=== PATIENT | female | born 1945 | race Caucasian/White ===

== ENCOUNTER 2020-10-10 16:50 | Inpatient (IN) | payer MEDICARE ==
[2020-10-10] MEDS ORDERED: fentaNYL 50 MCG/ML SDV IVPUSH ONE (17:28)
--- NOTE | 2020-10-10 17:48 | EDM.PDOC ---
ED HPI GENERAL MEDICAL PROBLEM - General Chief Complaint: Back Pain or Injury Stated Complaint: right low back pain. Time Seen by Provider: 10/10/20 17:20 Source of Information: Reports: Patient, EMS, EMS Notes Reviewed History Limitations: Reports: No Limitations - History of Present Illness INITIAL COMMENTS - FREE TEXT/NARRATIVE: Patient presents via EMS for back pain. She states that she had a flare of low back pain in the middle of her back a few weeks ago and by the time she saw her physician it was improving. She was prescribed some tizanidine and kept it on hand in case she needed it. She states that the pain was in the middle of the lumbar area without any radiculopathy. No loss of bowel or bladder and no perineal nuumbness. two days ago she bent over to reach in to a laundry machine and had sudden pain in the right buttock area without radiculopathy. States she took an aleve, a tizanidine and went to bed. THis morning she awoke with significant pain with any movement in bed. Pain is better laying flat on her back. She attempted multiple times today to get out of bed, unsuccessful due to chronic deconditioning in the upper body to pull herself up. She urinated in the bed several times due to inability to get up and her could not get her up either. She denies inability to hold her urine, and no loss of control, just significant pain and inability to get out of bed. No stool loss. no perineal numbness. Last took a tizanidine at 2 am. took some tylenol and aleve today. No back surgery or injury. NO fevers or chills. NO IVDU. 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 Onset Date: 10/09/20 Duration: Constant Location: Reports: Back Severity: Moderate Improves with: Reports: Other (laying flat on her back) Worsens with: Reports: Movement Associated Symptoms: Reports: No Other Symptoms Treatments BRA[employer]ED [employer]: Reports: Acetaminophen, NSAIDS, Other Medication(s) (tizanidine at 2 am) Right Buttock Pain Score (Numeric/FACES): 1 - Related Data Allergies Allergy/AdvReac Type Severity Reaction Status Date / Time No Known Allergies Allergy Verified 10/10/20 17:25 Home Meds: Home Meds tiZANidine [Zanaflex] 2 mg PO DAILY PRN 10/10/20 [History] Past Medical History Neurological History: Reports: Migraines Hematologic History: Reports: Other (See Below) (smoldering small lyphocytic lymphoma) - Past Surgical History HEENT Surgical History: Reports: Other (See Below) (blepharoplasty) Female Surgical History: Reports: Tubal Ligation Social & Family History - Tobacco Use Tobacco Use Status *Q: Never Tobacco User - Alcohol Use Alcohol Use History: No Alcohol Use in Last Twelve Months: No - Recreational Drug Use Recreational Drug Use: No Drug Use in Last 12 Months: No ED ROS GENERAL - Review of Systems Review Of Systems: See Below Constitutional: Reports: No Symptoms. Denies: Fever, Chills, Malaise, Weakness HEENT: Reports: No Symptoms. Denies: Contact Lenses, Throat Pain, Throat Swelling Respiratory: Reports: No Symptoms. Denies: Shortness of Breath, Cough, Sputum Cardiovascular: Reports: No Symptoms. Denies: Chest Pain, Claudication, Dyspnea on Exertion Endocrine: Reports: No Symptoms GI/Abdominal: Reports: No Symptoms. Denies: Abdominal Pain, Anorexia, Black Stool, Bloody Stool, Nausea, Stool Incontinence, Vomiting : Reports: No Symptoms. Denies: Discharge, Dysuria, Frequency Musculoskeletal: Reports: Back Pain Skin: Reports: No Symptoms Neurological: Reports: No Symptoms. Denies: Confusion, Dizziness ED EXAM,LOWER BACK PAIN/INJURY - Physical Exam Exam: See Below Exam Limited By: No Limitations General Appearance: WD/WN, No Apparent Distress Eye Exam: Bilateral Eye: EOMI, Normal Inspection, PERRL Nose: Normal Inspection, Normal Mucosa, No Blood Throat/Mouth: Normal Inspection, Normal Lips, Normal Teeth Head: Atraumatic, Normocephalic Neck: Normal Inspection, Supple, Non-Tender, Full Range of Motion Respiratory/Chest: No Respiratory Distress, Lungs Clear, Normal Breath Sounds, No Accessory Muscle Use, Chest Non-Tender Cardiovascular: Normal Peripheral Pulses, Regular Rate, Rhythm, No Murmur GI/Abdominal: Normal Bowel Sounds, Soft, Non-Tender, No Abnormal Bruit Back Exam: Other (difficulty rolling over in bed. pain to palpation at the SI joint on the right. NO lumbar verteberal or midline tenderness. NO lesions or rashes. Able to squeeze butt cheecks together. No other pain to palpation ) Extremities: Normal Inspection, Normal Range of Motion, Non-Tender, No Pedal Edema, Normal Capillary Refill (2/4 strength symmetric bilaterally in the lower extremities to knee extension, knee flexion, hip flexion, foot dorsi and plantar flexion. Normal sensation to light touch bilaterally in the lower extremities. dorsalis pedis and posterior tibialis pulses intact distally bilaterally) Neurological: Alert, Normal Mood/Affect, Normal Dorsiflexion, CN II-XII Intact, Normal Plantar Flexion, No Motor/Sensory Deficits, Oriented x 3, Difficulty Walking. No: Tremor, Saddle Anesthesia Psychiatric: Normal Affect, Normal Mood Skin Exam: Warm, Dry Course - Vital Signs Last Recorded V/S: Last Vital Signs Temp 36.6 C 10/10/20 16:50 Pulse 84 10/10/20 16:50 Resp 16 10/10/20 16:50 BP 133/58 L 10/10/20 16:50 Pulse Ox 97 10/10/20 16:50 - Orders/Labs/Meds Orders: Active Orders 24 hr Category Date Time Status Admission Status [Patient Status] [ADT] Routine ADT 10/10/20 19:06 Ordered Acetaminophen/HYDROcodone [[place] 325-5 MG] Med 10/10/20 19:08 Ordered 1 tab PO Q4H PRN Lactulose [Cephulac] Med 10/10/20 20:00 Ordered 20 gm PO BID Medication Orders Hydrocodone Bitart/Acetaminophen (Acetaminophen/Hydrocodone 325-5 Mg Tab) 1 tab PO Q4H PRN PRN Reason: Pain (moderate 4-6) Lactulose (Lactulose Soln 10 Gm/15 Ml 30 Ml Ud Cup) 20 gm PO BID YOMAIRA Labs: Laboratory Tests 10/10/20 10/10/20 10/10/20 Range/Units 17:43 17:43 17:43 WBC 11.0 H (4.0-10.0) x10^3/uL RBC 3.81 L (4.00-5.50) x10^6/uL Hgb 11.8 L (12.0-16.0) g/dL Hct 33.9 (33.0-47.0) % MCV 89.0 (78.0-93.0) fL MCH 31.0 (26.0-32.0) pg MCHC 34.8 (32.0-36.0) g/dL RDW Coeff of Ileana 12.1 (10.0-15.0) % Plt Count 297 (130-400) x10^3/uL Neut % (Auto) 72.0 (50.0-80.0) % Lymph % (Auto) 19.8 L (25.0-50.0) % [place] % (Auto) 7.5 (2.0-11.0) % Eos % (Auto) 0.3 (0.0-4.0) % Baso % (Auto) 0.4 (0.2-1.2) % ESR 12 (0-20) mm/hr Sodium 142 (136-145) mmol/L Potassium 4.0 (3.5-5.1) mmol/L Chloride 108 H (98-107) mmol/L Carbon Dioxide 24 (21-32) mmol/L Anion Gap 14.0 (5-15) mmol/L BUN 15 (7-18) mg/dL Creatinine 0.7 (0.55-1.02) mg/dL Est Cr Clr Drug Dosing TNP Estimated GFR (MDRD) > 60 Glucose 110 H (70-99) mg/dL Lactic Acid 0.6 (0.4-2.0) mmol/L Calcium 9.3 (8.5-10.1) mg/dL Corrected Calcium 9.4 (8.5-10.1) mg/dL Total Bilirubin 0.7 (0.2-1.0) mg/dL AST 18 (15-37) U/L ALT 10 L (14-59) U/L Alkaline Phosphatase 91 (46-116) U/L C-Reactive Protein < 0.2 (<=0.9) mg/dL Total Protein 6.6 (6.4-8.2) g/dL Albumin 3.9 (3.4-5.0) g/dL Globulin 2.7 Albumin/Globulin Ratio 1.44 Urine Color (YELLOW) Urine Appearance (CLEAR) Urine pH (5.0-8.0) Ur Specific Chapman Urine Protein (NEGATIVE) mg/dL Urine Glucose (UA) (NEGATIVE) mg/dL Urine Ketones (NEGATIVE) mg/dL Urine Occult Blood (NEGATIVE) Urine Nitrite (NEGATIVE) Urine Bilirubin (NEGATIVE) Urine Urobilinogen (0.2) EU/dL Ur Leukocyte Esterase (NEGATIVE) SARS CoV-2 RNA Rapid JOY (NEGATIVE) 10/10/20 10/10/20 Range/Units 17:45 18:09 WBC (4.0-10.0) x10^3/uL RBC (4.00-5.50) x10^6/uL Hgb (12.0-16.0) g/dL Hct (33.0-47.0) % MCV (78.0-93.0) fL MCH (26.0-32.0) pg MCHC (32.0-36.0) g/dL RDW Coeff of Ileana (10.0-15.0) % Plt Count (130-400) x10^3/uL Neut % (Auto) (50.0-80.0) % Lymph % (Auto) (25.0-50.0) % [place] % (Auto) (2.0-11.0) % Eos % (Auto) (0.0-4.0) % Baso % (Auto) (0.2-1.2) % ESR (0-20) mm/hr Sodium (136-145) mmol/L Potassium (3.5-5.1) mmol/L Chloride (98-107) mmol/L Carbon Dioxide (21-32) mmol/L Anion Gap (5-15) mmol/L BUN (7-18) mg/dL Creatinine (0.55-1.02) mg/dL Est Cr Clr Drug Dosing Estimated GFR (MDRD) Glucose (70-99) mg/dL Lactic Acid (0.4-2.0) mmol/L Calcium (8.5-10.1) mg/dL Corrected Calcium (8.5-10.1) mg/dL Total Bilirubin (0.2-1.0) mg/dL AST (15-37) U/L ALT (14-59) U/L Alkaline Phosphatase (46-116) U/L C-Reactive Protein (<=0.9) mg/dL Total Protein (6.4-8.2) g/dL Albumin (3.4-5.0) g/dL Globulin Albumin/Globulin Ratio Urine Color Yellow (YELLOW) Urine Appearance Clear (CLEAR) Urine pH 7.0 (5.0-8.0) Ur Specific [place] 1.025 Urine Protein Negative (NEGATIVE) mg/dL Urine Glucose (UA) Negative (NEGATIVE) mg/dL Urine Ketones 15 H (NEGATIVE) mg/dL Urine Occult Blood Negative (NEGATIVE) Urine Nitrite Negative (NEGATIVE) Urine Bilirubin Negative (NEGATIVE) Urine Urobilinogen 0.2 (0.2) EU/dL Ur Leukocyte Esterase Negative (NEGATIVE) SARS CoV-2 RNA Rapid JOY Negative (NEGATIVE) Meds: Medications Generic Name Dose Route Start Last Admin Trade Name Freq PRN Reason Stop Dose Admin Hydrocodone Bitart/Acetaminophen 1 tab 10/10/20 19:08 Acetaminophen/Hydrocodone 325-5 Mg Tab PO Q4H PRN Pain (moderate 4-6) Lactulose 20 gm 10/10/20 20:00 Lactulose Soln 10 Gm/15 Ml 30 Ml Ud Cup PO BID YOMAIRA Discontinued Medications Generic Name Dose Route Start Last Admin Trade Name Freq PRN Reason Stop Dose Admin Diazepam 2.5 mg 10/10/20 17:28 10/10/20 17:42 Diazepam 10 Mg/2 Ml Syringe IVPUSH 10/10/20 17:29 2.5 mg STAT ONE Administration Fentanyl 25 mcg 10/10/20 17:28 10/10/20 17:35 Fentanyl 50 Mcg/Ml Sdv IVPUSH 10/10/20 17:29 25 mcg ONETIME ONE Administration Glycerin 1 supp 10/10/20 19:08 Glycerin Adult 2 Gm Supp RECTAL 10/10/20 19:09 ONETIME ONE - Radiology Interpretation Free Text/Narrative:: CT of the pelvis without contrast no fracture, dislocation or acute osseous abnormality. DJD of the femoral acetabular joints bilaterally. partially visualized retroperitoneal and mesenteric adenopathy, not significantly changed compared to recent study. moderate retained stool within the rectum. NO acute fracture CT of the lumbar spine non contrast. compression deformity of the L1 vertebral body involving the inferior endplate not seen on study August 31 2020. 20% loss of body height. No significant retropulsion. interpreted by radiologist. - Re-Assessments/Exams Free Text/Narrative Re-Assessment/Exam: 10/10/20 18:05 Patient was given 2.5 mg of valium IV by EMS, this did drop her blood pressure from 130 systolic to 100. IV fluids were given. patient tolerated exam minimally. No neurological defect, some global weakness but equal and symmetric. Will give valium 2.5 mg IVP, fenatanyl [address] non contrast pelvis and lumbar spine due to inability to get out of bed. Check labs and cath urine specimen 10/10/20 19:14 offered admission for intractable pain. wants to do this. understands the need for MRI to document the acuity of the L1 compression fracture. Although the c ompression fracture was not present on the previous CT in August, insurance does require this. Needs referral to vertebroplasty after this. PCP can organize this outpatient with MRI next week. given hydrocodone 5/325 po, glycerin suppository as there is stool in the rectal vault and lactulose started to prevent constipation. Departure - Departure Time of Disposition: 19:13 Disposition: Refer to Observation Clinical Impression: Compression fracture of L1 lumbar vertebra, Abdominal lymphadenopathy - Discharge Information *PRESCRIPTION DRUG MONITORING PROGRAM REVIEWED*: Not Applicable *COPY OF PRESCRIPTION DRUG MONITORING REPORT IN PATIENT RADHIKA: Not Applicable Referrals: Arlet Koehler DO [Primary Care Provider] - Forms: ED Department Discharge Additional Instructions: please use the ER visit as the admission H & P Sepsis Event Note (ED) - Focused Exam Vital Signs: Vital Signs Temp Pulse Resp BP Pulse Ox 10/10/20 16:50 36.6 C 84 16 133/58 L 97 - My Orders Last 24 Hours: My Active Orders 10/10/20 19:06 Admission Status [Patient Status] [ADT] Routine 10/10/20 19:08 Acetaminophen/HYDROcodone [[place] 325-5 MG] 1 tab PO Q4H PRN 10/10/20 20:00 Lactulose [Cephulac] 20 gm PO BID - Assessment/Plan Last 24 Hours: My Active Orders 10/10/20 19:06 Admission Status [Patient Status] [ADT] Routine 10/10/20 19:08 Acetaminophen/HYDROcodone [[place] 325-5 MG] 1 tab PO Q4H PRN 10/10/20 20:00 Lactulose [Cephulac] 20 gm PO BID
[2020-10-10 18:15] LABS: CHLORIDE,CL 108 mmol/L (98-107); SODIUM,NA 142 mmol/L (136-145)
--- NOTE | 2020-10-10 18:44 | CT ---
[id number] CT/CT Pelvis WO IV EXAM: CT PELVIS WITHOUT CONTRAST. INDICATION: RIGHT LOWER BACK PAIN, UNABLE TO GET OUT OF BED. COMPARISON: None. DISCUSSION: No fracture, dislocation or other acute osseous abnormality. Mild degenerative changes of the femoral acetabular joints bilaterally. Again identified is a partially visualized retroperitoneal and mesenteric adenopathy. Overall this is not significantly changed when compared to recent study. Moderate amount of retained stool within the rectum. Impaction is not excluded. IMPRESSION: 1. No acute fracture. Jluis Chin DO 10/10/20 [id number] Thank you for allowing us to participate in the care of your patient.
--- NOTE | 2020-10-10 18:48 | CT ---
[id number] CT/CT Lumbar Spine WO IV EXAM: CT L-SPINE WITHOUT CONTRAST. INDICATION: RIGHT LOWER BACK PAIN, UNABLE TO GET OUT OF BED. COMPARISON: CT abdomen pelvis with contrast September 14, 2020. DISCUSSION: Compression deformity of the L1 vertebral body involving the inferior endplate was not seen on study from September 14, 2020. There is approximately 20% loss of body height. No significant retropulsion. No other compression deformities are identified. Mild multilevel degenerative changes of the lumbar spine including loss of disc space height, endplate osteophytosis and facet arthropathy. Findings are most pronounced at L4-L5. Again identified is extensive retroperitoneal and mesenteric adenopathy. Overall this is not significantly changed when compared to recent study. Moderate amount of retained stool within the rectum. Impaction is not excluded. IMPRESSION: 1. New compression deformity of L1 vertebral body with approximately 20% loss of body height. No significant retropulsion. Jluis Chin DO 10/10/20 [id number] Thank you for allowing us to participate in the care of your patient.
[2020-10-10] MEDS ORDERED: Glycerin Adult 2 GM Supp RECTAL ONE (19:08)
[2020-10-10] MEDS ORDERED: Ondansetron 4 MG Tab.DIS PO PRN (19:22)
[2020-10-10] MEDS ORDERED: Docusate Sodium 100 MG Cap PO PRN (19:22)
[2020-10-10] MEDS ORDERED: Ibuprofen 200 MG Tab PO PRN (19:22)
[2020-10-10] MEDS ORDERED: Acetaminophen 325 MG Tab PO PRN (19:22)
[2020-10-10] MEDS ORDERED: Flumazenil 0.1 MG/ML 5 ML MDV IVPUSH PRN (19:25)
[2020-10-10] MEDS ORDERED: Lidocaine 4% 1 each Patch TOP PRN (19:25)
[2020-10-10] MEDS: Acetaminophen/HYDROcodone 325-5 MG Tab PO PRN (19:40)
[2020-10-10] MEDS: Lactulose Soln 10 GM/15 ML 30 ML UD Cup PO SCH (21:30)
[2020-10-11] MEDS: Acetaminophen/HYDROcodone 325-5 MG Tab PO PRN ×4 (02:19→17:04)
[2020-10-11] MEDS: Cyclobenzaprine 10 MG Tab PO PRN ×2 (08:23→17:05)
[2020-10-11] MEDS: Lactulose Soln 10 GM/15 ML 30 ML UD Cup PO SCH ×2 (08:26→20:00)
[2020-10-11] MEDS: Enoxaparin 40 MG/0.4 ML Syringe SUBCUT SCH (11:28)
--- NOTE | 2020-10-11 18:33 | PCM.PN ---
- General Info Date of Service: 10/11/20 Admission Dx/Problem (Free Text): intractable back pain, L1 compression fracture Subjective Update: Patient was admitted last night for intractable back pain. She has a new L1 compression fracture and has been receiving pain medication, physical therapy has started intervention. initial attempt to get up resulted in vasovagal and patient laid flat on her back most of the day. This evening she did get up, walked some laps, sat in a chair and had a bowel movement. Improving Functional Status: Reports: Pain Controlled, Ambulating - Review of Systems General: Reports: No Symptoms HEENT: Reports: No Symptoms Pulmonary: Reports: No Symptoms Cardiovascular: Reports: No Symptoms Gastrointestinal: Reports: No Symptoms Genitourinary: Reports: No Symptoms Musculoskeletal: Reports: Back Pain Neurological: Reports: No Symptoms Psychiatric: Reports: No Symptoms - Patient Data Vitals - Most Recent: Last Vital Signs Temp 36.8 C 10/11/20 14:00 Pulse 79 10/11/20 14:00 Resp 16 10/11/20 14:00 BP 101/53 L 10/11/20 14:00 Pulse Ox 95 10/11/20 14:00 Weight - Most Recent: 71.9 kg I&O - Last 24 Hours: Intake & Output 10/11/20 10/11/20 10/11/20 06:59 14:59 22:59 Intake Total 300 Output Total 300 Balance -300 300 Lab Results Last 24 Hours: Laboratory Results - last 24 hr 10/10/20 Range/Units 17:43 ESR 12 (0-20) mm/hr Med Orders - Current: Current Medications Acetaminophen (Acetaminophen 325 Mg Tab) 650 mg PO Q4H PRN PRN Reason: Pain (Mild 1-3)/fever Hydrocodone Bitart/Acetaminophen (Acetaminophen/Hydrocodone 325-5 Mg Tab) 1 tab PO Q4H PRN PRN Reason: Pain (moderate 4-6) Last Admin: 10/11/20 17:04 Dose: 1 tab Documented by: Cyclobenzaprine HCl (Cyclobenzaprine 10 Mg Tab) 10 mg PO Q8H PRN PRN Reason: Spasms Last Admin: 10/11/20 17:05 Dose: 10 mg Documented by: Diazepam (Diazepam 10 Mg/2 Ml Syringe) 2.5 mg IVPUSH Q4HR PRN PRN Reason: Spasms Docusate Sodium (Docusate Sodium 100 Mg Cap) 100 mg PO BID PRN PRN Reason: Constipation Enoxaparin Sodium (Enoxaparin 40 Mg/0.4 Ml Syringe) 40 mg SUBCUT Q24H [facility] Last Admin: 10/11/20 11:28 Dose: 40 mg Documented by: Fentanyl (Fentanyl 50 Mcg/Ml Sdv) 25 mcg IVPUSH Q2HR PRN PRN Reason: Pain (severe 7-10) Flumazenil (Flumazenil 0.1 Mg/Ml 5 Ml Mdv) 0.2 mg IVPUSH ASDIRECTED PRN PRN Reason: Respiratory Depression Ibuprofen (Ibuprofen 200 Mg Tab) 600 mg PO Q6H PRN PRN Reason: Pain (mild 1-3) Lactulose (Lactulose Soln 10 Gm/15 Ml 30 Ml Ud Cup) 20 gm PO BID [facility] Last Admin: 10/11/20 08:26 Dose: 20 gm Documented by: Lidocaine (Lidocaine 4% 1 Each Patch) 1 each TOP DAILY PRN PRN Reason: Pain Last Admin: 10/11/20 11:28 Dose: 1 each Documented by: Miscellaneous Information (Remove Lidocaine Patch) 1 ea TRDERM BEDTIME [facility] Ondansetron HCl (Ondansetron 4 Mg Tab.Dis) 4 mg PO Q4H PRN PRN Reason: nausea, able to take PO Last Admin: 10/11/20 18:08 Dose: 4 mg Documented by: Ondansetron HCl (Ondansetron 4 Mg/2 Ml Sdv) 4 mg IV Q4H PRN PRN Reason: Nausea/Vomiting Discontinued Medications Diazepam (Diazepam 10 Mg/2 Ml Syringe) 2.5 mg IVPUSH STAT ONE Stop: 10/10/20 17:29 Last Admin: 10/10/20 17:42 Dose: 2.5 mg Documented by: Fentanyl (Fentanyl 50 Mcg/Ml Sdv) 25 mcg IVPUSH ONETIME ONE Stop: 10/10/20 17:29 Last Admin: 10/10/20 17:35 Dose: 25 mcg Documented by: Glycerin (Glycerin Adult 2 Gm Supp) 1 supp RECTAL ONETIME ONE Stop: 10/10/20 19:09 Last Admin: 10/10/20 19:42 Dose: 1 supp Documented by: - Exam General: Alert HEENT: Pupils Equal Neck: Supple Lungs: Clear to Auscultation Cardiovascular: Regular Rate, Regular Rhythm GI/Abdominal Exam: Normal Bowel Sounds, Soft Extremities: Normal Inspection, Normal Range of Motion, Non-Tender, Other (ambulating well) Neurological: No New Focal Deficit - Patient Data Lab Results Last 24 hrs: Laboratory Results - last 24 hr 10/10/20 Range/Units 17:43 ESR 12 (0-20) mm/hr Result Diagrams: 10/10/20 17:43 10/10/20 17:43 Sepsis Event Note - Focused Exam Vital Signs: Vital Signs Temp Pulse Resp BP Pulse Ox 10/11/20 14:00 36.8 C 79 16 101/53 L 95 10/11/20 10:00 36.8 C 78 20 150/57 H 98 - Problem List & Annotations (1) Compression fracture of L1 lumbar vertebra SNOMED Code(s): 669812105, [id number], [id number] Code(s): S32.010A - WEDGE COMPRESSION FRACTURE OF FIRST LUMBAR VERTEBRA, INIT Status: Acute Current Visit: Yes Annotation/Comment:: patient has new L1 compression fracture, getting scheduled pain medication, managed to get up for physical therapy tonight, improving. Needs further therapy to make it home - Problem List Review Problem List Initiated/Reviewed/Updated: Yes - My Orders Last 24 Hours: My Active Orders 10/10/20 19:06 Admission Status [Patient Status] [ADT] Routine 10/10/20 19:08 Acetaminophen/HYDROcodone [[place] 325-5 MG] 1 tab PO Q4H PRN 10/10/20 19:22 May Shower [RC] .PRN Oxygen Therapy [RC] .PRN Up With Assistance [RC] 08,20 Vital Signs [RC] 06,10,14,18,22,02 Acetaminophen [TylenoL] 650 mg PO Q4H PRN Docusate Sodium [Colace] 100 mg PO BID PRN Ibuprofen [Motrin] 600 mg PO Q6H PRN Ondansetron [Zofran ODT] 4 mg PO Q4H PRN Ondansetron [Zofran] 4 mg IV Q4H PRN Resuscitation Status Routine 10/10/20 19:25 Consult to Physical Therapy [PT Evaluation and Treatment] [CONS] Routine Cyclobenzaprine [Flexeril] 10 mg PO Q8H PRN Lidocaine 4% [Aspercreme 4%] 1 each TOP DAILY PRN diazePAM [Valium] 2.5 mg IVPUSH Q4HR PRN flumazeniL [Romazicon] 0.2 mg IVPUSH ASDIRECTED PRN 10/10/20 19:31 fentaNYL 25 mcg IVPUSH Q2HR PRN 10/10/20 20:00 Lactulose [Cephulac] 20 gm PO BID 10/11/20 Breakfast Regular Diet [DIET] 10/11/20 12:00 Enoxaparin [Lovenox] 40 mg SUBCUT Q24H 10/11/20 20:00 Remove Patch 1 ea TRDERM BEDTIME - Assessment Assessment:: L1 compression fracture, intractable pain, improving with mediations and therapy - Plan Plan:: Patient needs to continue to progress with therapy, be more independent. Has called PCP to set up MRI and refer for vertebroplasty in [place]. Is doing better tonight and more optimistic. Will continue cares in hopes of 20:00 discharge on 10/12 or transfer to acute care.
[2020-10-12] MEDS: Cyclobenzaprine 10 MG Tab PO PRN ×2 (01:06→22:37)
[2020-10-12] MEDS: Acetaminophen/HYDROcodone 325-5 MG Tab PO PRN ×2 (08:13→19:58)
[2020-10-12] MEDS: Lactulose Soln 10 GM/15 ML 30 ML UD Cup PO SCH ×2 (08:13→19:57)
[2020-10-12] MEDS: Calcitonin (Salmon) Nasal Spray 3.7 ML Bottle NAS SCH (10:58)
[2020-10-12] MEDS: fentaNYL 50 MCG/ML SDV IVPUSH PRN ×3 (11:12→17:25)
[2020-10-12] MEDS: Enoxaparin 40 MG/0.4 ML Syringe SUBCUT SCH (11:13)
[2020-10-12] MEDS: Ondansetron 4 MG/2 ML SDV IV PRN (14:16)
--- NOTE | 2020-10-12 14:18 | PCM.PN ---
- General Info Date of Service: 10/12/20 Admission Dx/Problem (Free Text): intractable back pain, L1 compression fracture Subjective Update: Patient was feeling good this am, had been up ambulating last evening with staff as well as earlier today. Does admit that position changes are the hardest for her. Was only using tylenol through the night for pain. States if lays still in the bed, has no pain. Has been eating well. No nausea or vomiting with meals. Called to the room to assess patient for discharge home as she had been doing well. Attempting to get out of the bed and repositioning self. Very slow and purposeful. Started having spasms and became nauseated. Unsure how she would manage at home with only there to assist her. Functional Status: Reports: Tolerating Diet, Ambulating. Denies: Pain Controlled - Review of Systems General: Reports: Weakness HEENT: Reports: No Symptoms Pulmonary: Denies: Shortness of Breath, Cough Cardiovascular: Denies: Chest Pain, Edema Gastrointestinal: Reports: Nausea. Denies: Abdominal Pain, Vomiting Genitourinary: Reports: No Symptoms Musculoskeletal: Reports: Back Pain Skin: Reports: Pallor Neurological: Reports: Weakness - Patient Data Vitals - Most Recent: Last Vital Signs Temp 97.9 F 10/12/20 10:00 Pulse 73 10/12/20 10:00 Resp 18 10/12/20 10:00 BP 103/51 L 10/12/20 10:00 Pulse Ox 94 L 10/12/20 06:00 Weight - Most Recent: 158 lb 8.198 oz I&O - Last 24 Hours: Intake & Output 10/11/20 10/12/20 10/12/20 22:59 06:59 14:59 Intake Total 640 100 Balance 640 100 Med Orders - Current: Current Medications Acetaminophen (Acetaminophen 325 Mg Tab) 650 mg PO Q4H PRN PRN Reason: Pain (Mild 1-3)/fever Last Admin: 10/12/20 01:05 Dose: 650 mg Documented by: Hydrocodone Bitart/Acetaminophen (Acetaminophen/Hydrocodone 325-5 Mg Tab) 1 tab PO Q4H PRN PRN Reason: Pain (moderate 4-6) Last Admin: 10/12/20 08:13 Dose: 1 tab Documented by: Calcitonin [place] (Calcitonin ([place]) Nasal [place] 3.7 Ml Bottle) 0 ml XUAN DAILY YOMAIRA Last Admin: 10/12/20 10:58 Dose: Not Given Documented by: Cyclobenzaprine HCl (Cyclobenzaprine 10 Mg Tab) 10 mg PO Q8H PRN PRN Reason: Spasms Last Admin: 10/12/20 01:06 Dose: 10 mg Documented by: Diazepam (Diazepam 10 Mg/2 Ml Syringe) 2.5 mg IVPUSH Q4HR PRN PRN Reason: Spasms Docusate Sodium (Docusate Sodium 100 Mg Cap) 100 mg PO BID PRN PRN Reason: Constipation Enoxaparin Sodium (Enoxaparin 40 Mg/0.4 Ml Syringe) 40 mg SUBCUT Q24H [facility] Last Admin: 10/12/20 11:13 Dose: 40 mg Documented by: Fentanyl (Fentanyl 50 Mcg/Ml Sdv) 25 mcg IVPUSH Q2HR PRN PRN Reason: Pain (severe 7-10) Last Admin: 10/12/20 11:12 Dose: 25 mcg Documented by: Flumazenil (Flumazenil 0.1 Mg/Ml 5 Ml Mdv) 0.2 mg IVPUSH ASDIRECTED PRN PRN Reason: Respiratory Depression Ibuprofen (Ibuprofen 200 Mg Tab) 600 mg PO Q6H PRN PRN Reason: Pain (mild 1-3) Lactulose (Lactulose Soln 10 Gm/15 Ml 30 Ml Ud Cup) 20 gm PO BID [facility] Last Admin: 10/12/20 08:13 Dose: 20 gm Documented by: Lidocaine (Lidocaine 4% 1 Each Patch) 1 each TOP DAILY PRN PRN Reason: Pain Last Admin: 10/11/20 11:28 Dose: 1 each Documented by: Miscellaneous Information (Remove Lidocaine Patch) 1 ea TRDERM BEDTIME [facility] Last Admin: 10/11/20 20:01 Dose: 1 ea Documented by: Ondansetron HCl (Ondansetron 4 Mg Tab.Dis) 4 mg PO Q4H PRN PRN Reason: nausea, able to take PO Last Admin: 10/11/20 18:08 Dose: 4 mg Documented by: Ondansetron HCl (Ondansetron 4 Mg/2 Ml Sdv) 4 mg IV Q4H PRN PRN Reason: Nausea/Vomiting Discontinued Medications Diazepam (Diazepam 10 Mg/2 Ml Syringe) 2.5 mg IVPUSH STAT ONE Stop: 10/10/20 17:29 Last Admin: 10/10/20 17:42 Dose: 2.5 mg Documented by: Fentanyl (Fentanyl 50 Mcg/Ml Sdv) 25 mcg IVPUSH ONETIME ONE Stop: 10/10/20 17:29 Last Admin: 10/10/20 17:35 Dose: 25 mcg Documented by: Glycerin (Glycerin Adult 2 Gm Supp) 1 supp RECTAL ONETIME ONE Stop: 10/10/20 19:09 Last Admin: 10/10/20 19:42 Dose: 1 supp Documented by: - Exam General: Alert, Oriented HEENT: Mucous Membr. Moist/[place] Neck: Supple Lungs: Clear to Auscultation, Normal Respiratory Effort Cardiovascular: Regular Rate, Regular Rhythm GI/Abdominal Exam: Normal Bowel Sounds, Soft, Non-Tender Back Exam: Decreased Range of Motion, Muscle Spasm, Vertebral Tenderness Extremities: Normal Inspection, No Pedal Edema Skin: Warm, Dry Neurological: No New Focal Deficit - Patient Data Result Diagrams: 10/10/20 17:43 10/10/20 17:43 Sepsis Event Note - Evaluation Sepsis Screening Result: No Definite Risk - Focused Exam Vital Signs: Vital Signs Temp Pulse Pulse Resp BP BP Pulse Ox 10/12/20 10:00 97.9 F 73 73 18 103/51 L 10/12/20 06:00 97.2 F 68 16 107/53 L 94 L - Problem List & Annotations (1) Compression fracture of L1 lumbar vertebra SNOMED Code(s): 694023906, 287827893, [id number] Code(s): S32.010A - WEDGE COMPRESSION FRACTURE OF FIRST LUMBAR VERTEBRA, INIT Status: Acute Priority: High Current Visit: Yes Qualifiers: Encounter type: initial encounter Qualified Code(s): S32.010A - Wedge compression fracture of first lumbar vertebra, initial encounter for closed fracture Annotation/Comment:: patient has new L1 compression fracture, getting scheduled pain medication, managed to get up for physical therapy tonight, improving. Needs further therapy to make it home - Problem List Review Problem List Initiated/Reviewed/Updated: Yes - My Orders Last 24 Hours: My Active Orders 10/12/20 09:15 Calcitonin ([place]) [Miacalcin Nasal [place]] See Dose Instructions XUAN DAILY 10/12/20 14:10 Patient Status [ADT] Routine - Assessment Assessment:: L1 compression fracture, intractable pain, improving with mediations and therapy - Plan Plan:: Patient needs to continue to progress with therapy, be more independent. Has called PCP to set up MRI and refer for vertebroplasty in [place]. Is doing better tonight and more optimistic. Will continue cares in hopes of 20:00 discharge on 10/12 or transfer to acute care. 10-12-2020 Patient has had intermittent pain, mostly increases with any position changes. Was attempting to get up to commode, had sudden onset of pain and spasms, became nauseated. Unsure how to care for self at home. Movement is very slow. is tender to lumbar spine. Contacted Dr. Koehler in regards to acute admission for pain control as struggling with movement. She agrees to transferring patient to acute admission.
[2020-10-12 16:16] LABS: ANION GAP 12.7 mmol/L (5-15); CHLORIDE,CL 105 mmol/L (98-107); SODIUM,NA 140 mmol/L (136-145)
[2020-10-12] MEDS: Ketorolac 15 MG/ML SDV IVPUSH PRN (17:23)
[2020-10-12] MEDS: Ibuprofen 200 MG Tab PO SCH (19:58)
--- NOTE | 2020-10-12 20:48 | HP ---
CHIEF COMPLAINT: Back pain. HISTORY OF PRESENT ILLNESS: This 75-year-old female admitted to observation on 10/10 with back pain that she could not even get out of bed at home and was found to have an L1 compression fracture, 20% loss of height. She has no history of previous compression fractures or previous back problems or surgery, but the patient had had a CT back in August for her lymphoma. She did not remember any specific injury but had some painful back spasms, but by the time she saw me on 09/29, they were better. She had tried going to the chiropractor, but it made it worse. She had tried some muscle relaxant tizanidine. She states at home she just like moved her arm to get some clothes out of the laundry and then it was sore and then she just was in bed and could not get up to the point where she lost control of her urine, but has not had further problems with bowel or bladder incontinence and has had a bowel movement here. The patient was just getting oral agents for pain control. She was actually getting up yesterday working with therapy. She was doing well enough. She was hopeful to go home today, but this afternoon as she was getting up to get ready, she just had severe pain from like 0 to 9. She ended up getting fentanyl. She has had 2 IV doses of 25, and she just still is a 5/10, even lying still in bed. She does not even want to be touched. She has to be careful to even move her arm. The patient was also very nauseated, got Zofran. She was diaphoretic and just overall not doing well. Therefore, decision was made to upgrade her to acute cares that she is now requiring IV pain control. ALLERGIES: Include none. CURRENT MEDICATION LIST: From [place] includes only the tizanidine. Her hospital medication list thus far includes p.r.n. Tylenol, [place] 5/325, Miacalcin spray, Flexeril p.r.n., Valium IV push had not received any yet, Colace twice daily p.r.n., Lovenox daily, fentanyl 25 mcg q.2 hours p.r.n., ibuprofen 600 mg q.i.d. p.r.n., lactulose 20 g b.i.d., Aspercreme 4%, and Zofran 4 mg p.o. or IV p.r.n. 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 In fact, this was picked up incidentally when she had her mammogram last year. Otherwise, the patient has been immunized for COVID. SURGICAL HISTORY: Includes tubal ligation, lymph node biopsy, bilateral blepharoplasty. FAMILY HISTORY: Both parents . Father had colon cancer. Mother had breast cancer. Father also had pancreatic cancer. SOCIAL HISTORY: The patient is . She lives at home with her . She is retired from banking. She has 2 children. REVIEW OF SYSTEMS: General: The patient has not had any fever or chills. She really had not felt unwell until this back pain. No weight changes that was since her last visit in August. HEENT: No sore throat. No trouble swallowing. Cardiac: No chest pain. No palpitations. Respiratory: No cough, no shortness of breath, but she does have to be careful with cough due to the back pain. Abdomen: No nausea, vomiting, diarrhea prior to admission. Otherwise, all systems reviewed and found to be negative unless otherwise stated or listed in HPI. PHYSICAL EXAMINATION: Vital Signs: Today, when I assessed her for acute care, she was 98.1, pulse 85, blood pressure 97/58, respiratory rate 19, and O2 of 98% on room air. General: She is in no acute distress. Heart: Regular rate and rhythm. S1, S2 without murmur. Lungs: Her lung sounds are clear to auscultation bilaterally without crackles or wheezes. Abdomen: Nondistended. Positive bowel sounds. Soft, nontender. Extremities: Warm and dry. No edema. She is moving her legs equally. She is moving her arms. Mental Status: She is alert and orientated x3. Due to patient's request, I did not have her roll over and palpate her back, but she is pointing to the area on the middle of the spine to right side around that upper lumbar area as her area of tenderness. LAB WORK: White count was 11 on admission down to 7.5 today, hemoglobin stable at 11.5, platelets 253. Sodium 140, potassium 3.7, chloride 105, bicarb 26, BUN 23, creatinine 0.8, glucose 123, calcium 8.8. ALT, AST, liver function all normal. Albumin 3.3. UA showed just 15 for ketones, but no wbc's. COVID negative. The patient has been eating 50% to 100% of her meals. IMAGING: The lumbar CT in fact did reveal her to have a new L1 compression deformity with approximately 20% loss of body height, but no significant retropulsion. ASSESSMENT AND PLAN: 1. Acute L1 compression fracture with severe pain, unable to manage with oral agents. The patient will be admitted to acute care. She will be on scheduled Motrin and p.r.n. IV fentanyl, which she has already been receiving and IV Toradol. She also gets some IV Valium currently as she is still having pain, just very tight, having difficulty to relax. 2. Small lymphocytic lymphoma. She is on observation for that. 3. Mild anemia. Blood counts are stable. No acute signs of bleeding. 4. Painful back spasms. This is likely due to the compression fracture. She is not having any neurologic deficits to suggest need for an emergent MRI. PLAN: The patient will continue under acute cares. We will focus on pain control scheduling narcotics if need be, but she is currently using them routinely. We will have medications available for nausea. Ice will be utilized. She is seeing physical therapy and we are working on outpatient followup with IR who would like to review that MRI which can hopefully be done on Friday. If her neurologic condition worsens, then we would need to transfer her for DVT prophylaxis, she is on Lovenox. She is a code level 1. MKA: 10/12/2020 16:49:42 MODL: 10/12/2020 20:41:35 /[id number]
[2020-10-13] MEDS: Ketorolac 15 MG/ML SDV IVPUSH PRN ×2 (02:49→11:54)
[2020-10-13] MEDS: Ibuprofen 200 MG Tab PO SCH ×3 (08:05→19:28)
[2020-10-13] MEDS: Acetaminophen/HYDROcodone 325-5 MG Tab PO PRN (08:06)
[2020-10-13] MEDS: Calcitonin (Salmon) Nasal Spray 3.7 ML Bottle NAS SCH (08:07)
[2020-10-13] MEDS: Lactulose Soln 10 GM/15 ML 30 ML UD Cup PO SCH ×2 (08:07→19:28)
[2020-10-13] MEDS: Cyclobenzaprine 10 MG Tab PO PRN (08:07)
[2020-10-13] MEDS: Ondansetron 4 MG/2 ML SDV IV PRN (11:53)
[2020-10-13] MEDS: Enoxaparin 40 MG/0.4 ML Syringe SUBCUT SCH (11:57)
--- NOTE | 2020-10-13 13:37 | PN ---
Progress Note for DRE DAUGHERTY Date: 10/13/2020 Room #: VM.215 SUBJECTIVE: This is hospital day acute care #2, but previously was on observation, so total hospital day #4 for an acute L1 compression fracture of the back with severe back pain and spasms. The patient was actually up and doing better, hoping to go home, but then yesterday she had severe spasms, became nauseated, very diaphoretic. Therefore, she was switched over to acute care and started on IV fentanyl, which did improve her pain, but even lying still in bed, she was still 5/10. She was very tense, and she did get some IV Valium, which helped. She got 2 total doses yesterday and a total of 75 mcg of fentanyl. She was also then initiated by myself on the IV Toradol, which she got a dose, and scheduled Motrin. She did report her stomach being upset, but almost more nauseated, and being more sort of anxious about the whole situation, having a very hard time going to sleep because she had this feeling like she would stop breathing. The patient is not quite used to taking medications. She has been very healthy, but she does have a lymphoma, although she is just on observation for it. No treatments. She rates her pain at about 4 today, but she has not really got up and moved today yet. She is not having any pain shooting into the legs or leg weakness. No bowel or bladder dysfunction. OBJECTIVE: Vital Signs: Her temperature is 98.1, pulse 82, blood pressure 136/65, respiratory rate 16, and O2 of 95% on room air. General: She is in no acute distress. Heart: A regular rate and rhythm. S1, S2 without murmur. Lungs: Lung sounds are clear to auscultation bilaterally without crackles, wheezes. Abdomen: Nondistended, nontender. Extremities: Warm and dry. No edema. She does report the pain is sort of moving a little bit over to the left side. Now, it was more center to the right before. Mental Status: She is alert and oriented x3. Psych: She is not overly anxious or shaky. ASSESSMENT: 1. Acute L1 compression fracture with severe intractable pain, unable to be managed by oral agents. The patient is getting some oral hydrocodone today. She will continue on scheduled Motrin unless it causes stomach irritation. She does prefer when Nursing is offering her the medications that work best, and I did assistant boys track coach her that if the pain is severe to use the intravenous, but if not severe, she can start with oral agents. The plan is for an MRI Friday and follow up with Interventional Radiology. They have already been contacted. 2. Small lymphocytic lymphoma. She is on observation. 3. Mild anemia. Blood counts stable. No indication today for repeat labs. 4. Painful back spasms. PLAN: The patient will continue on acute cares. She was taking some magnesium at home. I am going to restart this to ensure that she does not become constipated. She will continue her current pain management. She is on Lovenox for DVT prophylaxis. Dr. Laura to follow up over the weekend. Code level 1. MKA: 10/13/2020 13:11:08 MODL: 10/13/2020 13:29:00 /[id number]
[2020-10-13] MEDS ORDERED: Midazolam 1 MG/ML 2 ML SDV IVPUSH PRN (14:50)
[2020-10-13] MEDS ORDERED: fentaNYL 100 MCG/2 ML SDV IVPUSH PRN (14:50)
[2020-10-13] MEDS: fentaNYL 50 MCG/ML SDV IVPUSH PRN (18:26)
[2020-10-13] MEDS: Magnesium Oxide 400 MG Tab PO SCH (19:28)
--- NOTE | 2020-10-13 19:39 | PCM.SN.2 ---
- Free Text/Narrative Note: I was asked to consult on a 75-year-old female patient who was admitted with L1 compression fracture on 10 October 2020. Patient has continued to have severe pain and spasms since that time. Patient has required dosages of IV medication for pain control. IV medications include diazepam, fentanyl, and ketorolac. Additionally she is required doses of hydrocodone/acetaminophen 5/325 mg, topical acetylsalicylic acid, cyclobenzaprine, lidocaine patch, ibuprofen. Patient has had some relief of her pain with this regime. Patient reports that she feels that she is having spasm-like pain when she moves. At this point in time the patient is trying to minimize the amount of movement that she performs. Patient is found in bed. Patient describes how she had onset of pain prior to 26 September 2020. There is no apparent precipitating event. She had awaken and had difficulty getting out of bed. She had fallen back into bed and took 5 additional tries to walk herself out of bed. Patient was unable to bend over at that time. She did go to the chiropractor and received some treatment. This neither benefit or reduced her pain. She did experience some shooting sensation up the left side during the chiropractic treatment but did not have any continued discomfort or shooting sensation afterwards. Patient did seem to have some improvement by the time she was seen by Dr. Arlet Koehler. She was started on tizanidine. This seemed to be some improvement until the patient went to retrieve laundry out of the dryer. Upon bending over she had severe back spasms and could not straighten up. Patient was then seen in the emergency room and admitted. She had had some improvement up until yesterday when she was to be discharged, she had the nurse helping her Dalia bathrobe and when the patient raised her right arm and was assisted by the nurse, the pain shot down into the lower back. After that the patient again required IV medication and was reluctant to move. She did report an incident where her had come in and adjusted the bedding and this caused severe spasms. Patient reports that the pain is in the lower lumbar back across the belt line bilaterally and then does refer into the superior aspect of the right buttock and to the lateral aspect of the gluteus eli. Patient tells me that if she is able to lay in bed she significantly less pain and in fact is quite comfortable. Patient does express a fear of not wanting to move for fear of aggravating her back pain. She is currently reporting her pain is 1/10 with lying in the bed. She does have increased discomfort when she gets up and the pain reached a level of 10/10 at least 5 times yesterday. Patient reports that she does have increased pain with repositioning, stretching her shoulders, and even had significantly increased pain and spasm with crying. Pain does radiate into the right buttock. It does not radiate into the extremities. Patient denies tingling, numbness, weakness, paresthesia. The patient does describes the pain as a constant dull twisting type pain that can become sharp and spasm- like when she moves. Patient has had relief by using ibuprofen, hydrocodone cyclobenzaprine and did receive relief with the IV medications yesterday. Allergies: None Medications: Hydrocodone/acetaminophen 5-325 mg, Colace, acetaminophen, ondansetron, topical acetylsalicylic acid, cyclobenzaprine, flumazenil, diazepam, fentanyl, lactulose, ketorolac, ibuprofen, magnesium oxide. Past medical history: Migraine headaches, small lymphocytic lymphoma, patient has been immunized for Covid. Past surgical history: Tubal ligation, lymph node biopsy, bilateral blepharoplasty. Family history: Parents . Father had colon cancer and pancreatic cancer. Mother had breast cancer. Social history: Patient is living with her . Patient is retired from working in a bank. Patient has 2 children 1 son and 1 daughter. Review of systems: General: Denies fevers, chills, night sweats. HEENT: Patient denies cough or cold symptoms, sore throat. Pulmonary: Patient denies shortness of breath or cough. Patient is not in distress. Patient reports significantly increased pain with coughing or crying. Cardiovascular: Patient denies chest pain or shortness of breath on exertion. Patient denies palpitations. Gastrointestinal: Patient denies abdominal pain. Patient denies andres incontinence. Genitourinary: Patient denies andres incontinence, pain or burning with urina tion. Musculoskeletal: Patient reports spasm-like pain in the lower lumbar back across the belt line with some referral into the right buttock. Psychiatric: Patient denies suicidal ideation. Neurological: Patient denies tingling, numbness, weakness, paresthesia. Pain exam: Patient was examined in bed. Lower extremity strength testing is 5/5 bilaterally throughout. Reflexes 2/4 bilaterally for the patellar, hamstring and Achilles. SI joint provocation performing Abram's was negative bilaterally. Clonus was 2 beats bilaterally. Pulses are 2+ bilaterally in the dorsalis pedis pulses. Capillary refill is less than 3 seconds and the skin is warm dry pink. Bechterew's, Martinez Bernice, Nakul's, bowstring tests were all negative bilaterally. Straight leg raise was negative at 60 bilaterally supine. There is no tenderness to palpation of the bilateral sacroiliac joints. No significant tenderness to palpation of the facet joints of the lower lumbar back, patient does have active and provokable trigger points. These trigger points are distributed on the right side. Distribution is multifidus x1, intercostalis lumborum x1, gluteus eli x1. Sensation is grossly intact. Assessment: L1 compression fracture. Spasmodic pain most likely caused by myofascial trigger points. Patient does have active and provokable trigger points. Plan: Perform trigger point injections with the patient receiving sedation due to the severe apprehension of movement, fear of pain and the patient not wanting to be fully aware of the injections. Patient reported no pain following the injections. Patient was monitored and report was given to the [facility] nurse. Thank you very much for the opportunity to care for this patient.
--- NOTE | 2020-10-13 19:44 | PCM.PCLMI ---
- Free Text/Narrative Note: Trigger point injections 3 affecting 3 muscle groups Informed consent: Written and verbal informed consent were given to the patient. The risks and benefits procedure were discussed. The benefit being reduction in pain. The risks being infection, bleeding, drug reactions, worsening pain over the next few days, fact that it may not work, possible nerve damage, possible intervascular injection leading to seizures, pneumothorax. Patient understands this and agrees to proceed. Muscle groups affected: Trigger points are distributed on the right side. Distribution is multifidus x1, intercostalis lumborum x1, gluteus eli x1. Sensation is grossly intact. Prep: ChloraPrep. Local: Ropivacaine 0.2%. Procedure: Patient was placed in a left lateral position. Trigger points were identified by palpation and a bianca was placed identifying them, correspondingly. The area was prepped in a wide manner. The area was scrubbed vigorously for approximately 1-1/2-2 minutes. The prep was allowed to dry completely. I donned sterile gloves and maintain sterile technique throughout. At each trigger point I placed a 27-gauge by 1.5 inch needle and advanced until the resistance of the trigger point was noted. The patient reported an increase in discomfort. The syringe was aspirated negatively and a volume of the local anesthetic into the trigger point. The area surrounding the trigger point was needled, while simultaneously injecting an additional volume of the local anesthetic. This volume as noted below in the note. This procedure was followed for all subsequent trigger points. Each trigger point was injected with 1.5-2 mL of the local anesthetic and the surrounding area received 1.5-2 mL, giving approximately one half of the total dose into each of the sites treated at each trigger point. Postprocedure the patient's vital signs were monitored. No untoward effects were noted. No signs and symptoms a local anesthetic toxicity were noted. Patient reported pain of 0/10 on movement down from 4/10. This represents a 100% improvement in pain. Assessment: Myofascial trigger point pain resulting in spasm. Plan: Patient will have heat applied via K pad for 15 minutes every hour in the very lower lumbar back only, to the trigger point injection sites. Will watch for signs and symptoms of infection and worsening pain.
[2020-10-14] MEDS: Acetaminophen/HYDROcodone 325-5 MG Tab PO PRN ×2 (02:22→17:31)
[2020-10-14] MEDS: Cyclobenzaprine 10 MG Tab PO PRN (02:25)
[2020-10-14] MEDS: Lactulose Soln 10 GM/15 ML 30 ML UD Cup PO SCH ×2 (07:39→19:52)
[2020-10-14] MEDS: Ibuprofen 200 MG Tab PO SCH ×3 (07:39→19:52)
--- NOTE | 2020-10-14 09:02 | PN ---
Progress Note for DRE DAUGHERTY Date: 10/14/2020 Room #: VM.215 SUBJECTIVE: The patient is getting more managed with her pain with IV medications. Her bowels have been working. She has not been using an incentive spirometer since she has been here. The patient is waiting to have an MRI done on Friday to further diagnose her fracture. OBJECTIVE: Vital Signs: Her temperature is 35.8, pulse 70, blood pressure is 105/51, respiratory rate 12, saturations are 95%. Heart: Regular rate and rhythm. Lungs: Diminished breath sounds on bases. Back: Does have tenderness to palpation along her back. LABORATORY DATA: [employer] lab been done since 10/12/2020. IMPRESSION: 1. Intractable back pain due to L1 compression fracture. 2. Small lymphocytic lymphoma, mild anemia. 3. Painful back spasms. PLAN: We will add incentive spirometer for her. She will continue to work with her scheduled pain medications as well as p.r.n. pain medications and she did have improvement after her trigger point injections as well yesterday from [employer]. GM10/14/2020 08:46:54 MODL: 10/14/2020 08:59:23 /[id number]
[2020-10-14] MEDS: fentaNYL 50 MCG/ML SDV IVPUSH PRN (12:07)
[2020-10-14] MEDS: Enoxaparin 40 MG/0.4 ML Syringe SUBCUT SCH (12:07)
[2020-10-14] MEDS: Magnesium Oxide 400 MG Tab PO SCH (19:53)
[2020-10-15] MEDS: Acetaminophen/HYDROcodone 325-5 MG Tab PO PRN ×2 (02:16→10:21)
[2020-10-15] MEDS: Lactulose Soln 10 GM/15 ML 30 ML UD Cup PO SCH ×2 (07:42→19:27)
[2020-10-15] MEDS: Ibuprofen 200 MG Tab PO SCH ×3 (07:42→19:32)
[2020-10-15 08:18] LABS: CHLORIDE,CL 105 mmol/L (98-107); SODIUM,NA 142 mmol/L (136-145)
--- NOTE | 2020-10-15 08:26 | PN ---
Progress Note for DRE DAUGHERTY Date: 10/15/2020 Room #: VM.215 SUBJECTIVE: The patient is feeling a little bit better in terms of back pain. She was up moving around some, but still does have a strand of pain around her back. Her bowels have not moved yet. She did not get an incentive spirometer yesterday. OBJECTIVE: Vital Signs: Her temperature is 36.9, pulse 72, blood pressure is 113/55, respiratory rate is 12, sats are 95%. General: Her affect is pleasant, bright. Heart: Regular rate and rhythm. Lungs: Clear to auscultation. Abdomen: Soft. Extremities: No edema. 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 LABORATORY DATA: The patient does have pending lab work today of a CBC and basic metabolic profile. IMPRESSION: 1. L1 compression fracture. 2. Intractable pain, which is improving. 3. Small lymphocytic lymphoma. 4. Mild anemia. 5. Painful back spasms, improved. PLAN: We will continue parenteral pain control today. We will review her lab work tomorrow. Dr. Arlet Koehler will resume care and MRI will happen tomorrow. GM10/15/2020 08:04:51 MODL: 10/15/2020 08:17:44 /[id number]
[2020-10-15] MEDS: Cyclobenzaprine 10 MG Tab PO PRN ×2 (10:22→19:29)
[2020-10-15] MEDS: Enoxaparin 40 MG/0.4 ML Syringe SUBCUT SCH (15:46)
[2020-10-15] MEDS: Ketorolac 15 MG/ML SDV IVPUSH PRN (18:23)
[2020-10-15] MEDS: Magnesium Oxide 400 MG Tab PO SCH (19:33)
[2020-10-16] MEDS: Ibuprofen 200 MG Tab PO SCH (08:23)
[2020-10-16] MEDS: Lactulose Soln 10 GM/15 ML 30 ML UD Cup PO SCH (08:27)
[2020-10-16] MEDS ORDERED: tiZANidine 4 MG Tab PO PRN (08:45)
[2020-10-16] MEDS ORDERED: Bisacodyl 10 MG Supp RECTAL PRN (08:47)
[2020-10-16] MEDS: Enoxaparin 40 MG/0.4 ML Syringe SUBCUT SCH (11:42)
[2020-10-16] MEDS ORDERED: Diazepam 2 MG Tab PO ONE (12:00)
[2020-10-16] MEDS ORDERED: Acetaminophen 325 MG Tab PO SCH (12:00)
[2020-10-16] MEDS: Cyclobenzaprine 10 MG Tab PO PRN (15:04)
--- NOTE | 2020-10-16 21:42 | DISCH ---
Date of admission is 10/12/2020 to acute care, observation 10/10/2020. PRIMARY DISCHARGE DIAGNOSES: 1. Acute L1 compression fracture with severe back pain and painful spasms. 2. Small lymphocytic lymphoma, on observation, no acute treatments. 3. Deep vein thrombosis prophylaxis, she got Lovenox. 4. Possible osteoporosis. She has never had previous evaluation. 5. Mild anemia. REASON FOR ADMISSION: On the date of admission, this 75-year-old female who had had some previous back pain and spasms last month was having so much pain she could hardly get out of bed. She was brought into the emergency room and admitted to observation. She was about to go home, however, had severe pain and necessitated Fentanyl for pain control and she was then upgraded to acute care. She did get seen by the pain specialist on the and received trigger point injections x3 to her muscle groups and she reports that this helped significantly. Over the weekend, she was weaned down and off her IV pain control and just using oral hydrocodone. She did have also IV Valium with last dose on 10/12 just to help with the back spasms. She was on scheduled ibuprofen and had some p.r.n. Toradol, which also helped. The patient herself had not really been taking medications at home, just some p.r.n. tizanidine. She was getting lactulose here and was having bowel movements. MRI was completed today. She has already had referral to the Interventional Radiology to decide if this was a compression fracture that they were going to intervene on and her next plan of care will be determined by the MRI which the results are pending at the time of this dictation. The patient was up working with therapies at times doing actually quite well as long as the spasms stayed away. Therefore, she is discharged home today with her . PHYSICAL EXAMINATION: Vital Signs: Discharging vitals include a temperature 98.7, pulse 85, blood pressure 117/55, respiratory rate 16, O2 of 93% on room air, earlier today 97 on room air, during the night, 93 on room air. General: She is in no acute distress. Heart: Regular rate and rhythm. S1, S2 without murmur. Lungs: Lung sounds are clear to auscultation bilaterally without crackles, rales, or wheezes. Abdomen: Positive bowel sounds. Soft, nondistended, nontender. Extremities: Warm and dry, no edema. Mental Status: She is alert. She is orientated x3. Mildly anxious and apprehensive, but she is not used to being in the hospital. She did have some gentle palpation of her spine. It was not overly tender today. DISCHARGE PLAN AND INSTRUCTION: She will follow up in the clinic with myself in 1-2 weeks unless she is being seen in Interventional Radiology for vertebroplasty. She will be on scheduled Tylenol now 3 times a day to help with the pain as we did take her off the scheduled ibuprofen and she may use her Aleve 1-2 times a day as needed at home. She may use hydrocodone for more severe pain 5 mg every 4 hours. She may use her tizanidine as needed for muscle relaxant at home and she can use ice and her Lidoderm patches. She may continue her magnesium at bedtime and use an [id number] suppository if needed. She will continue the lactulose twice daily as needed and Colace if needed for constipation. Greater than 30 minutes spent on this discharge process. MKA: 10/16/2020 17:14:26 MODL: 10/16/2020 21:38:08 /[id number]
--- NOTE | 2020-10-18 12:43 | MR ---
[id number] MR/MRI Lumbar Spine WWO IV Exam: MRI Lumbar Spine WWO IV Clinical Data: LYMPHOMA COMPRESSION FRACTURE COMPARISON: CORRELATION IS MADE WITH THE CAT SCAN OF OCTOBER 10, 2020 FINDINGS: There is diffuse bone marrow signal abnormality There is a mild compression deformity of the L2 vertebral body There is mild subchondral marrow edema of the L2 vertebral body There is posterior protrusion of bone at L2 involving the thecal sac There is no compression of the cauda equina or conus medullaris There is slight bulging of the annulus at L4-L5 There are no sites of abnormal contrast enhancement There is extensive retroperitoneal and mesenteric adenopathy This is seen on image 22, series 701 There is better seen on the CAT scan of September 14, 2020 There are no sites of abnormal contrast enhancement IMPRESSION: RETROPERITONEAL ADENOPATHY DIFFUSE BONE SIGNAL ABNORMALITY LIKELY RELATED TO LYMPHOMA ALSO MILD COMPRESSION DEFORMITY OF L2 VERTEBRAL BODY Alejandro Magallanes MD 10/18/20 [id number] Thank you for allowing us to participate in the care of your patient.
== END 2020-10-16 17:08 | disposition home or self-care (01) | DRG 552 ==
LOC: VM.ED 16:50 → VM.MS 19:06 → OBSVTOIN 10-12 14:10
PROVIDERS: ADMIT Internal Medicine; ATTEND Internal Medicine
PROC: 3E0233Z Introduction of Anti-inflammatory into Muscle, Percutaneous Approach (ICD-10-PCS; principal; 2020-10-13)
PROC: 3E023BZ Introduction of Anesthetic Agent into Muscle, Percutaneous Approach (ICD-10-PCS; 2020-10-13)
DX: S32.019A Unspecified fracture of first lumbar vertebra, initial encounter for closed fracture (principal); S32.010A Wedge compression fracture of first lumbar vertebra, initial encounter for closed fracture; C85.80 Other specified types of non-Hodgkin lymphoma, unspecified site; C85.90 Non-Hodgkin lymphoma, unspecified, unspecified site; X58.XXXA Exposure to other specified factors, initial encounter; M62.830 Muscle spasm of back; M81.0 Age-related osteoporosis without current pathological fracture; D64.9 Anemia, unspecified; G43.909 Migraine, unspecified, not intractable, without status migrainosus; M79.18 Myalgia, other site; Z20.822 Contact with and (suspected) exposure to COVID-19; Z79.899 Other long term (current) drug therapy; Z98.51 Tubal ligation status
CPT/HCPCS: 36415; 72131; 72149; 72192; 80048; 80053; 81003; 83605; 83735; 85025; 85652; 86140; 96374; 96375; 97162-GP; 99285-25; A9270-GY; J1650; J1885; J2250; J2405; J3010; J3360; U0002